=== PATIENT | male | born 1990 | race Caucasian/White ===

== ENCOUNTER 2017-12-08 01:09 | Outpatient (CLI) | payer OTHER, SELFPAY | END 2017-12-08 01:29 | PROVIDERS: Visit Provider Physician Assistant | DX: R00.0 Tachycardia, unspecified (principal) | CPT/HCPCS: 93005; 93010 ==

== ENCOUNTER 2017-12-08 16:10 | Outpatient (CLI) | payer OTHER, SELFPAY ==
[2017-12-08 17:26] LABS: Abs Immature Grans 0.03 k/cumm (0.0-0.09); Absolute Basophil Count 0.05 k/cumm (0.0-0.2); Absolute Eosinophil Count 0.29 k/cumm (0.0-0.7); Absolute Lymphocyte Count 2.83 k/cumm (1.2-3.4); Absolute Monocyte Count 0.83 k/cumm (0.11-0.7); Absolute Neutrophil Count 5.46 k/cumm (1.2-6.7); Basophils % 0.5; Eosinophils % 3.1; HCT 45.4 % (40.0-50.0); HGB 15.2 g/dL (13.5-17.5); Immature Grans % 0.3; Lymphocytes % 29.8; Mean Corp. HGB Concentration 33.5 g/dL (32.0-36.0); Mean Corpuscular Hemoglobin 27.8 pg (27.0-33.0); Mean Corpuscular Volume 83.2 fL (80-95); Mean Platelet Volume 9.4 fL (8.0-11.0); Monocytes % 8.7; Neutrophils % 57.6; Platelet Count 346 x1000/uL (130-400); RBC 5.46 m/cumm (4.50-6.00); RBC Distribution Width 13.2 % (11.8-14.1); White Blood Cell Count 9.49 k/cumm (4.4-10.8)
[2017-12-08 18:11] LABS: Anion Gap 9.8 mmol/L (3-11); BUN 14 mg/dL (7-18); CO2 28.2 mmol/L (21.0-32.0); CREATININE 0.91 mg/dL (0.70-1.30); Calcium 9.2 mg/dL (8.5-10.1); Chloride 103 mmol/L (98-107); Glucose 96 mg/dL (70-100); Potassium 4.1 mmol/L (3.5-5.1); Sodium 141 mmol/L (136-145); TSH (W/Ref FT4) 1.96 uIU/mL (0.358-3.74)
[2017-12-11 20:13] LABS: Creatinine, Random Ur 231 mg/dL; Total Metanephrine/Creatinine 538 mcg/g Cr
== END 2017-12-08 16:30 ==
PROVIDERS: Visit Provider Physician Assistant
DX: I10 Essential (primary) hypertension (principal); R00.0 Tachycardia, unspecified
CPT/HCPCS: 36415; 80048; 83835; 84443; 85025

== ENCOUNTER 2017-12-25 00:14 | Outpatient (CLI) | payer OTHER, SELFPAY ==
--- NOTE | 2017-12-25 10:30 | MERGE_ITS ---
*[facility]* *[facility]* [address] [place] [address] Date of study: 12/25/2017 Transthoracic Echocardiography M-mode, complete 2D, complete spectral Doppler, and color Doppler *STUDY CONCLUSIONS* Summary: 1. Left ventricle: The cavity size was normal. Systolic function was normal. The estimated ejection fraction was 60-65%. Diastolic parameters were normal. There was no evidence of elevated ventricular filling pressure by Doppler parameters. 2. Right ventricle: Poorly visualized. 3. Atrial septum: No defect or patent foramen ovale was identified. 4. Pulmonary arteries: Pulmonary systolic pressure was >= 20mm Hg. 5. Inferior vena cava: Poorly visualized. *PATIENT PRESENTATION* Height: 182.9cm ((72in) ) S/D Pressure: 134 / 85 Weight: 113.4kg ((249.5lb) ) BSA: 2.44m^2 Test start time: 10:30 AM. Test stop time: 11:30 AM. PERFORMING Unknown ORDERING Anita Patel REFERRING Anita Patel PERFORMING [facility] RT Gordon (Mak)(CT), [facility] REFERRING [facility] *PROCEDURE DATA* Procedure information: The patient was identified by two identifiers. This study was interpreted by [facility]. Pertinent images and digital data are archived for permanent storage and are available for subsequent review. No prior study was available for comparison. Study status: Routine. Transthoracic echocardiography. M-mode, complete 2D, complete spectral Doppler, and color Doppler. A Transthoracic Echocardiogram was performed. Scanning was performed from the parasternal, apical, subcostal, and suprasternal notch acoustic windows. Images were obtained using an [id number] cardiac ultrasound machine. Image quality was adequate. Study completion: The patient tolerated the procedure well. History: PMH: Abnormal EKG. t wave inversion. percordial leads. *CARDIAC ANATOMY* Left ventricle: The cavity size was normal. Systolic function was normal. The estimated ejection fraction was 60-65%. The tissue Doppler parameters were normal. Diastolic parameters were normal. There was no evidence of elevated ventricular filling pressure by Doppler parameters. Aortic valve: Trileaflet. Doppler: There was no stenosis. There was no regurgitation. VTI ratio of LVOT to aortic valve: 0.78. Valve area (VTI): 2.7cm^2. Indexed valve area (VTI): 1.1cm^2/m^2. Peak velocity ratio of LVOT to aortic valve: 0.76. Valve area (Vmax): 2.6cm^2. Indexed valve area (Vmax): 1.1cm^2/m^2. Mean velocity ratio of LVOT to aortic valve: 0.83. Valve area (Vmean): 2.8cm^2. Indexed valve area (Vmean): 1.2cm^2/m^2. Mean gradient (S): 3.1mm Hg. Peak gradient (S): 5.4mm Hg. Aorta: Aortic root: The aortic root was normal in size. Ascending aorta: The ascending aorta was normal in size. Mitral valve: Doppler: There was no evidence for stenosis. There was no significant regurgitation. Valve area by pressure half-time: 4.7cm^2. Indexed valve area by pressure half-time: 1.9cm^2/m^2. Left atrium: The atrium was normal in size. Atrial septum: No defect or patent foramen ovale was identified. Right ventricle: Poorly visualized. Pulmonic valve: Doppler: There was no evidence for stenosis. There was mild regurgitation. Peak gradient (S): 5.1mm Hg. Tricuspid valve: Doppler: There was mild regurgitation. Pulmonary artery: Poorly visualized. Pulmonary systolic pressure was >= 20mm Hg. Right atrium: The atrium was normal in size. Pericardium: There was no significant pericardial effusion. Systemic veins: Inferior vena cava: Poorly visualized. Baseline ECG: Normal sinus rhythm. Measurements Left ventricle Value Reference LV ID, ED, PLAX 4.3 cm 3.5 - 6.0 LV ID, ES, PLAX 2.9 cm 2.1 - 4.0 LV PW thickness, ED, PLAX 1.1 cm LV end-diastolic volume, 1-p A2C 105 ml LV ejection fraction, 1-p A2C 56 % LV end-diastolic volume, 1-p A4C 105 ml LV ejection fraction, 1-p A4C 52 % LV e', lateral 0.115 m/sec LV E/e', lateral 5 LV e', medial 0.074 m/sec LV E/e', medial 8 LV e', average 0.094 m/sec LV E/e', average 6 Ventricular septum Value Reference IVS thickness, ED, PLAX 1.1 cm LVOT Value Reference LVOT ID, A-P 2.1 cm LVOT area 3.4 cm^2 LVOT peak velocity, S 0.88 m/sec LVOT mean velocity, S 0.7 m/sec LVOT VTI, S 15.6 cm LVOT peak gradient, S 3.1 mm Hg LVOT mean gradient, S 2.1 mm Hg Stroke volume (SV), LVOT DP 53 ml Stroke index (SV/bsa), LVOT DP 22 ml/m^2 Aortic valve Value Reference Aortic valve peak velocity, S 1.2 m/sec Aortic valve mean velocity, S 0.84 m/sec Aortic valve VTI, S 20.0 cm Aortic mean gradient, S 3.1 mm Hg Aortic peak gradient, S 5.4 mm Hg VTI ratio, LVOT/AV 0.78 Aortic valve area, VTI 2.7 cm^2 Velocity ratio, peak, LVOT/AV 0.76 Aortic valve area, peak velocity 2.6 cm^2 Velocity ratio, mean, LVOT/AV 0.83 Aortic valve area, mean velocity 2.8 cm^2 Aortic valve area/bsa, mean velocity 1.2 cm^2/m^2 Aorta Value Reference Aortic root ID, ED 3.0 cm Ascending aorta ID, A-P, S 2.7 cm RVOT Value Reference RVOT VTI, S 12.2 cm Left atrium Value Reference LA ID, A-P, ES 3.2 cm LA ID/bsa, A-P 1.3 cm/m^2 <=2.2 LA area, ES, A4C 16.7 cm^2 8.8 - 23.4 LA area, ES, A2C 15 cm^2 LA volume/bsa, ES, 1-p A4C 20 ml/m^2 LA volume, ES, 2-p 46 ml LA volume/bsa, ES, 2-p 19 ml/m^2 LA/aortic root ratio 1.07 Mitral valve Value Reference Mitral E-wave peak velocity 0.61 m/sec Mitral A-wave peak velocity 0.55 m/sec Mitral deceleration time 163 ms 150 - 230 Mitral pressure half-time 47 ms Mitral E/A ratio, peak 1.12 Mitral valve area, PHT, DP 4.7 cm^2 Pulmonary veins Value Reference Pulmonary vein peak velocity, S 0.5 m/sec Pulmonary vein peak velocity, D 0.42 m/sec Pulmonary vein velocity ratio, peak, 1.18 S/D Pulmonary vein A-wave reversal peak 0.28 m/sec velocity Pulmonary vein A-wave reversal 104 ms duration Tricuspid valve Value Reference Tricuspid regurg peak velocity 2.4 m/sec Tricuspid peak RV-RA gradient 22.6 mm Hg Right atrium Value Reference RA area, ES, A4C 13.1 cm^2 8.3 - 19.5 Pulmonic valve Value Reference Pulmonic peak gradient, S 5.1 mm Hg Legend: (L) and (H) santy values outside specified reference range. I have personally reviewed the images and have reviewed and edited the reported findings. Electronically signed by Wiliam Suresh MD 12/25/2017 13:56
== END 2017-12-25 00:34 ==
PROVIDERS: Visit Provider Physician Assistant
DX: R94.31 Abnormal electrocardiogram [ECG] [EKG] (principal); I10 Essential (primary) hypertension
CPT/HCPCS: 93306